=== PATIENT | female | born 1960 | race Caucasian/White ===

== ENCOUNTER 2017-04-04 08:25 | Emergency (ER) | payer OTHER ==
[~2017-04-04] VITALS: Ht 165.1 cm; Wt 79.0 kg
[~2017-04-04 08:25] MED LIST: BACT2OIN TOP; BACT800T5 PO; DEPA500T3 PO
[2017-04-04 08:26] VITALS: BP 202/87; PULSE 90; RESP 20; TEMP 97.9; O2SAT 98
--- NOTE | 2017-04-04 08:54 | PD ---
HPI Chief Complaint: Seizure Time Seen by Provider: 08:54 Travel History International Travel<30 days: No Contact w/Intl Traveler<30days: No Traveled to known affect area: No History of Present Illness HPI 56-year-old female presents the emergency department with question seizure this morning at 7:30 AM. Patient states she has been out of her Depakote since Tuesday., As well as taking less of that than normal due to inability to refill her prescription. Patient is currently having difficulty obtaining it secondary to insurance issues. Patient states she normally takes 2000 mg Depakote daily at bedtime. Patient states she woke up this morning after an apparent seizure, but denies any specific injury or illness symptoms at this time. Patient states she feels somewhat anxious now, like she would might have another seizure. She has no complaints of headache or pain. She has no known drug allergies. PFSH Past Medical History Cancer: No Diabetes: No Diminished Hearing: No Glaucoma: No Hepatitis: No Hiatal Hernia: No Hypertension: No Respiratory: No Seizures: Yes (EPILEPSY) Thyroid Disease: No Tetanus Vaccination: Unknown Influenza Vaccination: No ?: Not Menopausal: Yes Tubal Ligation: Yes Past Surgical History Gynecologic Surgery: Yes (RIGHT OVARY AND TUBE REMOVED; PARTIAL LEFT) Tonsillectomy: Yes Other Surgery: Yes Social History Alcohol Use: No Tobacco Use: Yes (1/2 PPD) Substance Use: Yes Allergies-Medications (Allergen,Severity, Reaction): Coded Allergies: No Known Allergies (Verified , 07/23/16) Reported Meds & Prescriptions Reported Meds & Active Scripts Active Depakote ER (Divalproex Sodium) 500 Mg Stephania 2,000 Mg PO DAILY Mupirocin 2% Oint (22 gm) (Mupirocin) 2 % Oin 1 Applic TOP TID 10 Days APPLY TO AFFECTED AREA(S) Bactrim DS (Sulfamethoxazole-Trimethoprim DS) 1 Tab Tab 1 Tab PO Q12 10 Days Reported Depakote ER 500 mg (Divalproex Sodium) 500 Mg Stephania 2,000 Mg PO HS Review of Systems Except as stated in HPI: all other systems reviewed are Neg General / Constitutional: No: Fever Eyes: No: Visual changes HENT: No: Headaches Cardiovascular: No: Chest Pain or Discomfort Respiratory: No: Shortness of Breath Gastrointestinal: No: Abdominal Pain Genitourinary: No: Dysuria Musculoskeletal: No: Pain Skin: No Rash Neurologic: Positive: Seizures, No: Weakness Psychiatric: No: Depression Endocrine: No: Polydipsia Hematologic/Lymphatic: No: Easy Bruising Physical Exam Narrative GENERAL: Patient appears in no acute distress. SKIN: Warm and dry. Normal color. Normal turgor. No signs of trauma. HEAD: Atraumatic. Normocephalic. Nontender. EYES: Pupils equal and round. No scleral icterus. No injection or drainage. ENT: No nasal bleeding or discharge. Mucous membranes pink and moist. No dental injury. No buccal membrane injury. Pharynx is clear. Airway is patent. NECK: Trachea midline. Supple and nontender. CARDIOVASCULAR: Regular rate and rhythm. RESPIRATORY: No accessory muscle use. Clear to auscultation. Breath sounds equal bilaterally. GASTROINTESTINAL: Abdomen soft, non-tender, nondistended. Hepatic and splenic margins not palpable. MUSCULOSKELETAL: Extremities without clubbing, cyanosis, or edema. No obvious deformities. NEUROLOGICAL: Awake and alert. No obvious cranial nerve deficits. Motor grossly within normal limits. Five out of 5 muscle strength in the arms and legs. Normal speech. PSYCHIATRIC: Appropriate mood and affect; insight and judgment normal. Data Data Last Documented VS Vital Signs Date Time Temp Pulse Resp B/P Pulse Ox O2 Delivery O2 Flow Rate FiO2 04/04/17 09:10 98 Room Air 04/04/17 08:41 18 04/04/17 08:26 97.9 90 202/87 Orders Complete Blood Count With Diff (04/04/17 08:54) Alcohol (Ethanol) (04/04/17 08:54) Valproic Acid (Depakene) (04/04/17 08:54) Drug Screen, Random Urine (04/04/17 08:54) Blood Glucose (04/04/17 08:54) Ecg Monitoring (04/04/17 08:54) Iv Access Insert/Monitor (04/04/17 08:54) Oximetry (04/04/17 08:54) Comprehensive Metabolic Panel (04/04/17 08:54) Urinalysis - C+S If Indicated (04/04/17 08:54) Valproic Acid (Depakene) (04/04/17 09:00) Divalproex (Depakobatsheva Price) (04/04/17 09:00) Lorazepam Inj (Ativan Inj) (04/04/17 09:00) Lorazepam Inj (Ativan Inj) (04/04/17 09:30) Labs Laboratory Tests Test 04/04/17 04/04/17 09:05 09:10 White Blood Count 7.9 TH/MM3 Red Blood Count 4.05 MIL/MM3 Hemoglobin 13.7 GM/DL Hematocrit 39.1 % Mean Corpuscular Volume 96.6 FL Mean Corpuscular Hemoglobin 33.8 PG Mean Corpuscular Hemoglobin 35.0 % Concent Red Cell Distribution Width 13.1 % Platelet Count 265 TH/MM3 Mean Platelet Volume 8.4 FL Neutrophils (%) (Auto) 59.9 % Lymphocytes (%) (Auto) 29.7 % Monocytes (%) (Auto) 8.5 % Eosinophils (%) (Auto) 1.3 % Basophils (%) (Auto) 0.6 % Neutrophils # (Auto) 4.8 TH/MM3 Lymphocytes # (Auto) 2.4 TH/MM3 Monocytes # (Auto) 0.7 TH/MM3 Eosinophils # (Auto) 0.1 TH/MM3 Basophils # (Auto) 0.0 TH/MM3 CBC Comment DIFF FINAL Differential Comment Sodium Level 141 MEQ/L Potassium Level 4.0 MEQ/L Chloride Level 107 MEQ/L Carbon Dioxide Level 28.2 MEQ/L Anion Gap 6 MEQ/L Blood Urea Nitrogen 15 MG/DL Creatinine 0.61 MG/DL Estimat Glomerular Filtration 102 ML/MIN Rate Random Glucose 79 MG/DL Calcium Level 8.9 MG/DL Total Bilirubin 0.3 MG/DL Aspartate Amino Transf 13 U/L (AST/SGOT) Alanine Aminotransferase 19 U/L (ALT/SGPT) Alkaline Phosphatase 53 U/L Total Protein 6.6 GM/DL Albumin 3.5 GM/DL Valproic Acid (Depakene) Level 21 MCG/ML Ethyl Alcohol Level LESS THAN 3 MG/DL Urine Color YELLOW Urine Turbidity CLEAR Urine pH 5.5 Urine Specific [place] 1.017 Urine Protein NEG mg/dL Urine Glucose (UA) NEG mg/dL Urine Ketones NEG mg/dL Urine Occult Blood NEG Urine Nitrite NEG Urine Bilirubin NEG Urine Urobilinogen 2.0 MG/DL Urine Leukocyte Esterase NEG Urine RBC 2 /hpf Urine WBC LESS THAN 1 /hpf Urine Squamous Epithelial <1 /hpf Cells Urine Calcium Oxalate Crystals RARE /hpf Urine Mucus FEW /lpf Microscopic Urinalysis Comment CULT NOT INDICATED Urine Opiates Screen NEG Urine Barbiturates Screen NEG Urine Amphetamines Screen NEG Urine Benzodiazepines Screen NEG Urine Cocaine Screen POS Urine Cannabinoids Screen NEG MDM Medical Decision Making Medical Screen Exam Complete: Yes Emergency Medical Condition: Yes Differential Diagnosis Seizure. Low Depakote level. Need for prescription. Narrative Course Patient is medically stable at time of exam. Labs ordered including CBC, CMP, Depakote level, and urinalysis including urine drug screen and serum EtOH level. Patient is given 1000 mg Depakote by mouth, as well as 0.5 mg lorazepam IV. Patient is given 1000 mL's normal saline bolus. CBC is unremarkable. CMP is unremarkable. Depakote level is 21 which is low. Urinalysis is unremarkable. EtOH level is less than 3. Urine drug screen is positive for cocaine otherwise negative. Patient is felt stable for discharge. Patient is given a prescription for Depakote 2000 mg daily at bedtime. Patient is to follow-up with her primary care physician or go to [facility] for primary care. Diagnosis Primary Impression: Seizure Additional Impression: Seizure disorder Referrals: [facility] Patient Instructions: General Instructions Additional Instructions: CBC is unremarkable. CMP is unremarkable. Depakote level is 21 which is low. Urinalysis is unremarkable. EtOH level is less than 3. Urine drug screen is Patient is felt stable for discharge. Patient is given a prescription for Depakote 2000 mg daily at bedtime. Patient is to follow-up with her primary care physician or go to [facility] for primary care. Med/Other Pt SpecificInfo: Prescription(s) given Scripts Divalproex ER (Depakote ER)500 Mg Taber2,000 Mg PO DAILY #120 TAB Ref 2 Prov:Sebas Hernandez MD 04/04/17 Disposition: DISCHARGE HOME Condition: Stable Jose Martin Okeefe Apr 04, 2017 08:54
[2017-04-04] MEDS ORDERED: LORazepam 2 MG/ML VIAL IM ONE (09:00)
[2017-04-04] MEDS ORDERED: VALPROIC ACID 250 MG CAP PO ONE (09:00)
[2017-04-04] MEDS ORDERED: DIVALPROEX DR 500 MG TABEC PO ONE (09:00)
[2017-04-04 09:10] VITALS: O2SAT 98
[2017-04-04 09:26] LABS: AUTOMATED NEUTROPHIL # 4.8 TH/MM3 (1.8-7.7); BASOPHIL % 0.6 % (0.0-2.0); EOSINOPHIL # 0.1 TH/MM3 (0-0.4); EOSINOPHIL % 1.3 % (0.0-4.0); HEMATOCRIT 39.1 % (35.0-46.0); HEMO FLAGS DIFF FINAL; LYMPH % 29.7 % (9.0-44.0); LYMPHOCYTE # 2.4 TH/MM3 (1.0-4.8); MEAN CELL VOLUME 96.6 FL (80.0-100.0); MEAN CORPUSCULAR HEMOGLOBIN 33.8 PG (27.0-34.0); MONO % 8.5 % (0.0-8.0); NEUT % 59.9 % (16.0-70.0); PLATELET COUNT 265 TH/MM3 (150-450); RED BLOOD COUNT 4.05 MIL/MM3 (4.00-5.30); RED CELL DISTRIBUTION WIDTH 13.1 % (11.6-17.2); WHITE BLOOD COUNT 7.9 TH/MM3 (4.0-11.0)
[2017-04-04 09:30] VITALS: BP 138/82; PULSE 89; RESP 20; O2SAT 98
[2017-04-04] MEDS ORDERED: LORazepam 2 MG/ML VIAL IV PUSH ONE (09:30)
[2017-04-04 09:40] LABS: BLOOD, URINE NEG (NEG); CALCIUM OXALATE CRYSTALS,URINE RARE /hpf; COMMENT (UR) CULT NOT INDICATED; CULTURE IF INDICATED CULT NOT INDICATED; GLUCOSE,URINE NEG (NEG); KETONE, URINE NEG (NEG); MUCUS URINE FEW /lpf (OCC); NITRITE,URINE NEG (NEG); PH, URINE 5.5 (5.0-8.5); SQUAMOUS EPITHELIAL CELL URINE <1 /hpf (0-5); URINE COLOR YELLOW (YELLW/STRAW)
[2017-04-04 09:41] LABS: ALT (GPT) 19 U/L (10-53); ANION GAP 6 MEQ/L (5-15); AST (GOT) 13 U/L (15-37); BICARBONATE 28.2 MEQ/L (21.0-32.0); BLOOD UREA NITROGEN 15 MG/DL (7-18); CHLORIDE 107 MEQ/L (98-107); GLOMERULAR FILTRATION RATE 102 ML/MIN (>89); SODIUM (NA) 141 MEQ/L (136-145)
[2017-04-04 09:44] LABS: ALKALINE PHOSPHATASE 53 U/L (45-117); TOTAL BILIRUBIN ADULT 0.3 MG/DL (0.2-1.0)
[2017-04-04 09:51] LABS: AMPHETAMINE, URINE NEG (NEG); BARBITURATES, URINE NEG (NEG); COCAINE, URINE POS (NEG)
[2017-04-04] MEDS ORDERED: DEPA500T3 PO (10:11)
[2017-04-04 10:25] VITALS: BP 145/86; PULSE 86; RESP 20; O2SAT 99
== END 2017-04-04 10:42 | disposition home or self-care (01) ==
LOC: NEPC 08:30
DX: G40.909 Epilepsy, unspecified, not intractable, without status epilepticus (principal); F17.200 Nicotine dependence, unspecified, uncomplicated; Z79.899 Other long term (current) drug therapy
CPT/HCPCS: 80053; 80164; 80307; 81001; 85025; 96374; 99284; J2060

== ENCOUNTER 2018-01-03 07:59 | Emergency (ER) | payer OTHER ==
[~2018-01-03] VITALS: Ht 165.1 cm; Wt 72.0 kg
[2018-01-03 08:04] VITALS: BP 185/91; PULSE 85; RESP 20; TEMP 98.4; O2SAT 100
[2018-01-03 08:14] VITALS: BP 170/101; PULSE 70; RESP 17; O2SAT 99
[2018-01-03] MEDS ORDERED: SODIUM CHLORIDE 0.9% FLUSH 10 ML FLUSH IV FLUSH PRN (08:45)
--- NOTE | 2018-01-03 08:48 | PD ---
HPI Chief Complaint: Dizziness Time Seen by Provider: 08:45 Travel History International Travel<30 days: No Contact w/Intl Traveler<30days: No Traveled to known affect area: No History of Present Illness HPI Patient is a 57-year-old female with no primary care physician history of seizures on Depakote presents emergency department for several complaints. Her chief complaint is about a weeks worth a history of abnormal stooling, she states it looked like she had "a paper bag" come out of her rectum the other day , she states she is also noticed some black flecks. She is concerned because her dog recently of parasites and wonders if she has parasites. She states she is having problems concentrating and her new job as a cashier clerk and problems staying awake. She is a cigarette smoker. She has never had a colonoscopy before. Denies any chest pain abdominal pain shortness of breath nausea vomiting diarrhea. PFSH Past Medical History Cancer: No Cardiovascular Problems: Yes (htn no meds) Diabetes: No Diminished Hearing: No Glaucoma: No Hepatitis: No Hiatal Hernia: No Hypertension: No Medical other: Yes (EPILEPSEY) Respiratory: No Immunizations Current: Yes Seizures: Yes (EPILEPSY) Thyroid Disease: No Tetanus Vaccination: > 5 Years Influenza Vaccination: No ?: Not Menopausal: Yes Tubal Ligation: Yes Past Surgical History Gynecologic Surgery: Yes (RIGHT OVARY AND TUBE REMOVED; PARTIAL LEFT) Tonsillectomy: Yes Other Surgery: Yes Social History Alcohol Use: No Tobacco Use: Yes (ppd) Substance Use: Yes (cocaine) Allergies-Medications (Allergen,Severity, Reaction): Coded Allergies: No Known Allergies (Verified Adverse Reaction, Unknown, 01/03/18) Reported Meds & Prescriptions Reported Meds & Active Scripts Active Depakote ER (Divalproex Sodium) 500 Mg Stephania 2,000 Mg PO DAILY Review of Systems Except as stated in HPI: all other systems reviewed are Neg Physical Exam Narrative GENERAL: Well-developed, well-nourished, no obvious distress. SKIN: Focused skin assessment warm/dry. HEAD: Atraumatic. Normocephalic. EYES: Pupils equal and round. No scleral icterus. No injection or drainage. ENT: No nasal bleeding or discharge. Mucous membranes pink and moist. NECK: Trachea midline. No JVD. CARDIOVASCULAR: Regular rate and rhythm. No murmur appreciated. RESPIRATORY: No accessory muscle use. Clear to auscultation. Breath sounds equal bilaterally. GASTROINTESTINAL: Abdomen soft, non-tender, nondistended. Hepatic and splenic margins not palpable. RECTAL: Exam performed with female nurse print shop manager present all times, no fissures no tears no hemorrhoids no masses, brown normal-appearing stool with Hemoccult negative testing MUSCULOSKELETAL: No obvious deformities. No clubbing. No cyanosis. No edema. NEUROLOGICAL: Awake and alert. No obvious cranial nerve deficits. Motor grossly within normal limits. Normal speech. PSYCHIATRIC: Elevated affect, normal mood. Insight and judgment normal. Somewhat hyperverbal. Data Data Last Documented VS Vital Signs Date Time Temp Pulse Resp B/P (MAP) Pulse Ox O2 Delivery O2 Flow Rate FiO2 01/03/18 11:15 01/03/18 08:14 70 17 99 Room Air 01/03/18 08:04 98.4 Orders Orders Electrocardiogram (01/03/18 08:45) Complete Blood Count With Diff (01/03/18 08:45) Comprehensive Metabolic Panel (01/03/18 08:45) Thyroid Stimulating Hormone (01/03/18 08:45) Ecg Monitoring (01/03/18 08:45) Iv Access Insert/Monitor (01/03/18 08:45) Oximetry (01/03/18 08:45) Sodium Chloride 0.9% Flush (Ns Flush) (01/03/18 08:45) Valproic Acid (Depakene) (01/03/18 08:46) Ed Discharge Order (01/03/18 11:04) Labs Laboratory Tests Test 01/03/18 08:45 01/03/18 09:04 White Blood Count 4.7 TH/MM3 Red Blood Count 3.86 MIL/MM3 Hemoglobin 12.6 GM/DL Hematocrit 36.9 % Mean Corpuscular Volume 95.6 FL Mean Corpuscular Hemoglobin 32.5 PG Mean Corpuscular Hemoglobin Concent 34.1 % Red Cell Distribution Width 13.0 % Platelet Count 260 TH/MM3 Mean Platelet Volume 9.0 FL Neutrophils (%) (Auto) 47.0 % Lymphocytes (%) (Auto) 43.5 % Monocytes (%) (Auto) 6.6 % Eosinophils (%) (Auto) 2.2 % Basophils (%) (Auto) 0.7 % Neutrophils # (Auto) 2.2 TH/MM3 Lymphocytes # (Auto) 2.0 TH/MM3 Monocytes # (Auto) 0.3 TH/MM3 Eosinophils # (Auto) 0.1 TH/MM3 Basophils # (Auto) 0.0 TH/MM3 CBC Comment DIFF FINAL Differential Comment Blood Urea Nitrogen 7 MG/DL Creatinine 0.69 MG/DL Random Glucose 82 MG/DL Total Protein 7.0 GM/DL Albumin 3.3 GM/DL Calcium Level 8.7 MG/DL Alkaline Phosphatase 62 U/L Aspartate Amino Transf (AST/SGOT) 24 U/L Alanine Aminotransferase (ALT/SGPT) 22 U/L Total Bilirubin 0.3 MG/DL Sodium Level 142 MEQ/L Potassium Level 4.1 MEQ/L Chloride Level 106 MEQ/L Carbon Dioxide Level 28.0 MEQ/L Anion Gap 8 MEQ/L Estimat Glomerular Filtration Rate 88 ML/MIN Thyroid Stimulating Hormone 3rd Gen 0.520 uIU/ML Valproic Acid (Depakene) Level 97 MCG/ML MDM Medical Decision Making Medical Screen Exam Complete: Yes Emergency Medical Condition: Yes Differential Diagnosis Depakote toxicity, GI bleeding, parasitic infection is possible but unlikely, poor social circumstance, fatigue, hypothyroidism Narrative Course Patient room to the emergency department, quite an odd complaint that she has passed some discolored paper from her rectum. Perform rectal exam and I am unimpressed. Her labs are reassuring. At this time there is no indication for further emergent workup. She is stable for discharge follow-up with the [facility] or primary care physician. Diagnosis Primary Impression: Stool color abnormal Referrals: [facility] Disposition: 01 DISCHARGE HOME Condition: Stable Adalberto Owusu MD Jan 03, 2018 08:48
[2018-01-03 09:14] LABS: AUTOMATED NEUTROPHIL # 2.2 TH/MM3 (1.8-7.7); BASOPHIL % 0.7 % (0.0-2.0); EOSINOPHIL # 0.1 TH/MM3 (0-0.4); EOSINOPHIL % 2.2 % (0.0-4.0); HEMATOCRIT 36.9 % (35.0-46.0); HEMOGLOBIN 12.6 GM/DL (11.6-15.3); LYMPH % 43.5 % (9.0-44.0); MEAN CELL VOLUME 95.6 FL (80.0-100.0); MEAN CORPUSCULAR HEMOGLOBIN 32.5 PG (27.0-34.0); MEAN CORPUSCULAR HGB CONC 34.1 % (32.0-36.0); MONO % 6.6 % (0.0-8.0); MONOCYTE # 0.3 TH/MM3 (0-0.9); PLATELET COUNT 260 TH/MM3 (150-450); RED BLOOD COUNT 3.86 MIL/MM3 (4.00-5.30); WHITE BLOOD COUNT 4.7 TH/MM3 (4.0-11.0)
[2018-01-03 09:31] LABS: ALT (GPT) 22 U/L (10-53)
[2018-01-03 09:34] LABS: ALBUMIN 3.3 GM/DL (3.4-5.0); AST (GOT) 24 U/L (15-37); BLOOD UREA NITROGEN 7 MG/DL (7-18); CALCIUM 8.7 MG/DL (8.5-10.1); CHLORIDE 106 MEQ/L (98-107); CREATININE 0.69 MG/DL (0.50-1.00); GLOMERULAR FILTRATION RATE 88 ML/MIN (>89); GLUCOSE,RANDOM 82 MG/DL (74-106); SODIUM (NA) 142 MEQ/L (136-145)
[2018-01-03 09:40] LABS: ALKALINE PHOSPHATASE 62 U/L (45-117); TOTAL BILIRUBIN ADULT 0.3 MG/DL (0.2-1.0)
--- NOTE | 2018-01-03 15:36 | EKG ---
Date Performed: 01/03/2018 Time Performed: 09:02:11 PTAGE: 57 years EKG: Sinus rhythm NORMAL ECG INTERPRETATION BASED ON A DEFAULT AGE OF 40 YEARS Since the previous tracing, no signific ant change noted NO PREVIOUS TRACING DOCTOR: Danish Fletcher Interpretating Date/Time 01/03/2018 15:34:10
== END 2018-01-03 11:28 | disposition home or self-care (01) ==
LOC: NEPC 07:59
DX: R19.5 Other fecal abnormalities (principal); F14.10 Cocaine abuse, uncomplicated; I10 Essential (primary) hypertension; G40.909 Epilepsy, unspecified, not intractable, without status epilepticus; F17.200 Nicotine dependence, unspecified, uncomplicated
CPT/HCPCS: 80053; 80164; 84443; 85025; 93005; 99284

== ENCOUNTER 2018-02-06 11:07 | Observation (INO) | payer OTHER ==
[~2018-02-06] VITALS: Ht 165.1 cm; Wt 68.0 kg
[~2018-02-06 11:07] MED LIST changes: -BACT2OIN TOP; -BACT800T5 PO
[2018-02-06 11:15] VITALS: BP 133/91; PULSE 88; RESP 20; TEMP 98.3; O2SAT 100
--- NOTE | 2018-02-06 11:27 | PD ---
HPI Chief Complaint: Seizure Time Seen by Provider: 11:27 Travel History International Travel<30 days: No Contact w/Intl Traveler<30days: No Traveled to known affect area: No History of Present Illness HPI 57-year-old female came to the emergency room with history of a seizure episode today at around 10 AM. Patient says that she was in a religious but had the seizure which was unwitnessed. Patient when she woke up was laying on a bench with her drink toppled over and her head was hurting. She was feeling very groggy and she recalls this feeling every time she has a seizure. Last seizure was 1 year ago however. Patient is on Depakote and missed couple doses last 2 or 3 days ago because she forgot. She takes 2 g before going to bed. She has had the diagnosis of epilepsy since she was 16 years old. Patient denies of any incontinence, lip bite her tongue bite. Currently she feels back to her normal self. Vital signs are stable. She usually would not have come if it was not for the prolonged time of the grogginess. This was new for her today. Currently she is having some headache and neck pain. Neck pain is worse when she tries to turn her head to look on her left side. PFSH Past Medical History Narrative Medical List of her past medical, surgical, social and family history reviewed from the nursing note. Cancer: No Cardiovascular Problems: Yes (htn no meds) Diabetes: No Diminished Hearing: No Glaucoma: No Hepatitis: No Hiatal Hernia: No Hypertension: No Respiratory: No Immunizations Current: Yes Seizures: Yes (EPILEPSY) Thyroid Disease: No ?: Not Menopausal: Yes Tubal Ligation: Yes Past Surgical History Gynecologic Surgery: Yes (RIGHT OVARY AND TUBE REMOVED; PARTIAL LEFT) Tonsillectomy: Yes Other Surgery: Yes Social History Alcohol Use: No Tobacco Use: Yes (ppd) Substance Use: Yes (cocaine) Allergies-Medications (Allergen,Severity, Reaction): Coded Allergies: No Known Allergies (Verified Adverse Reaction, Unknown, 02/06/18) Comments No known drug allergies. Reported Meds & Prescriptions Reported Meds & Active Scripts Active Narrative Medication List of her home medications reviewed from the nursing note Review of Systems Except as stated in HPI: all other systems reviewed are Neg Neurologic: Positive: Seizures Physical Exam Narrative GENERAL: Awake, alert, no obvious distress SKIN: Focused skin assessment warm/dry. HEAD: Atraumatic. Normocephalic. EYES: Pupils equal and round. No scleral icterus. No injection or drainage. ENT: No nasal bleeding or discharge. Mucous membranes pink and moist. NECK: Trachea midline. No JVD. Pain on lateral flexion left side more than right CARDIOVASCULAR: Regular rate and rhythm. No murmur appreciated. RESPIRATORY: No accessory muscle use. Clear to auscultation. Breath sounds equal bilaterally. GASTROINTESTINAL: Abdomen soft, non-tender, nondistended. Hepatic and splenic margins not palpable. MUSCULOSKELETAL: No obvious deformities. No clubbing. No cyanosis. No edema. NEUROLOGICAL: Awake and alert. No obvious cranial nerve deficits. Motor grossly within normal limits. Normal speech. PSYCHIATRIC: Appropriate mood and affect; insight and judgment normal. Data Data Last Documented VS Orders Orders Complete Blood Count With Diff (02/06/18 11:33) Basic Metabolic Panel (Bmp) (02/06/18 11:33) Valproic Acid (Depakene) (02/06/18 11:33) Ct Brain W/O Iv Contrast(Rout) (02/06/18 ) Blood Glucose (02/06/18 11:33) Ecg Monitoring (02/06/18 11:33) Iv Access Insert/Monitor (02/06/18 11:33) Oximetry (02/06/18 11:33) Sodium Chloride 0.9% Flush (Ns Flush) (02/06/18 11:45) Ct Cerv Spine W/O Contrast (02/06/18 ) Acetaminophen (Tylenol) (02/06/18 11:45) ^ Seizure Precautions (02/06/18 11:35) Sodium Chlor 0.9% 1000 Ml Inj (Ns 1000 M (02/06/18 13:30) Admit Order (Ed Use Only) (02/06/18 14:08) Labs Laboratory Tests Test 02/06/18 11:45 White Blood Count 7.4 TH/MM3 Red Blood Count 4.25 MIL/MM3 Hemoglobin 13.5 GM/DL Hematocrit 39.8 % Mean Corpuscular Volume 93.7 FL Mean Corpuscular Hemoglobin 31.8 PG Mean Corpuscular Hemoglobin Concent 33.9 % Red Cell Distribution Width 13.1 % Platelet Count 216 TH/MM3 Mean Platelet Volume 9.4 FL Neutrophils (%) (Auto) 60.3 % Lymphocytes (%) (Auto) 28.5 % Monocytes (%) (Auto) 9.7 % Eosinophils (%) (Auto) 0.6 % Basophils (%) (Auto) 0.9 % Neutrophils # (Auto) 4.4 TH/MM3 Lymphocytes # (Auto) 2.1 TH/MM3 Monocytes # (Auto) 0.7 TH/MM3 Eosinophils # (Auto) 0.0 TH/MM3 Basophils # (Auto) 0.1 TH/MM3 CBC Comment DIFF FINAL Differential Comment Blood Urea Nitrogen 11 MG/DL Creatinine 0.76 MG/DL Random Glucose 80 MG/DL Calcium Level 8.6 MG/DL Sodium Level 142 MEQ/L Potassium Level 4.0 MEQ/L Chloride Level 105 MEQ/L Carbon Dioxide Level 31.9 MEQ/L Anion Gap 5 MEQ/L Estimat Glomerular Filtration Rate 79 ML/MIN Total Creatine Kinase 62 U/L Valproic Acid (Depakene) Level 110 MCG/ML MDM Medical Decision Making Medical Screen Exam Complete: Yes Emergency Medical Condition: Yes Medical Record Reviewed: Yes Differential Diagnosis Breakthrough seizure, withdrawal seizure Narrative Course 11:58 AM awaiting for the blood test result. Awaiting for the Depakote level. I have ordered CAT scan of her head and C-spine. If test is also within normal limit patient will be discharged home. Have given her Tylenol for headache. 1:14 PM blood test results are back and Depakote level is critically high. This is concerning given the fact that patient has already missed few doses and is still continues to be high. I would like her to be admitted at least for observation so that this level can be watched. Obviously her dose needs to be withheld for the time being. Awaiting for the hospitalist callback. Procedures EKG Prior to Arrival: No Diagnosis Primary Impression: Seizure disorder Additional Impression: Depakote toxicity Admitting Information Admitting Physician Requests: Observation Scripts Divalproex ER (Depakote ER) 500 Mg Stephania 1000 MG PO DAILY for Control Seizures, #30 TAB 0 Refills Prov: Cassius Bruner MD 02/08/18 Levetiracetam (Keppra) 500 Mg Tab 500 MG PO Q12HR for Seizure Control, #60 TAB Prov: Cassius Bruner MD 02/08/18 Brian Pascal MD Feb 06, 2018 11:27
[2018-02-06 11:44] VITALS: BP 190/88; PULSE 78; RESP 16; O2SAT 98
[2018-02-06] MEDS ORDERED: SODIUM CHLORIDE 0.9% FLUSH 10 ML FLUSH IVF PRN (11:45)
[2018-02-06] MEDS ORDERED: ACETAMINOPHEN 325 MG TAB PO ONE (11:45)
[2018-02-06 12:30] VITALS: BP 173/80; PULSE 72; RESP 14; O2SAT 99
--- NOTE | 2018-02-06 12:36 | RADRPT ---
EXAM DATE/TIME: 02/06/2018 12:15 [facility] COMPARISON: No previous studies available for comparison. INDICATIONS : Possible seizure today. RADIATION DOSE: 56.35 CTDIvol (mGy) MEDICAL HISTORY : Seizures. SURGICAL HISTORY : Tubal ligation. ENCOUNTER: Initial ACUITY: 1 day PAIN SCALE: 10/10 LOCATION: Bilateral head TECHNIQUE: Multiple contiguous axial images were obtained of the head. Using automated exposure control and adj ustment of the mA and/or kV according to patient size, radiation dose was kept as low as reasonably a chievable to obtain optimal diagnostic quality images. DICOM format image data is available electro nically for review and comparison. FINDINGS: CEREBRUM: The ventricles are normal for age. No evidence of midline shift, mass lesion, hemorrhage or acute in farction. No extra-axial fluid collections are seen. POSTERIOR FOSSA: The cerebellum and brainstem are intact. The 4th ventricle is midline. The cerebellopontine angle i s unremarkable. EXTRACRANIAL: The visualized portion of the orbits is intact. SKULL: The calvaria is intact. No evidence of skull fracture. CONCLUSION: Negative noncontrast CT Azeem Cota MD on February 06, 2018 at 12:33 Board Certified Radiologist. This report was verified electronically.
--- NOTE | 2018-02-06 12:42 | RADRPT ---
EXAM DATE/TIME: 02/06/2018 12:15 [facility] COMPARISON: No previous studies available for comparison. INDICATIONS : Possible seizure today. RADIATION DOSE: 17.08 CTDIvol (mGy) MEDICAL HISTORY : Seizures. SURGICAL HISTORY : None. ENCOUNTER: Initial ACUITY: 1 day PAIN SCALE: 6/10 LOCATION: Bilateral neck TECHNIQUE: Volumetric scanning of the cervical spine was performed. Multiplanar reconstructions in the sagittal, coronal and oblique axial planes were performed. Using automated exposure control and adjustment o f the mA and/or kV according to patient size, radiation dose was kept as low as reasonably achievable to obtain optimal diagnostic quality images. DICOM format image data is available electronically f or review and comparison. FINDINGS: The sagittal reconstructions demonstrate normal alignment and normal prevertebral soft tissues. The d ens is intact and there is a normal atlantoaxial relationship. Degenerative changes present at the C5 -6 and C6-7 levels with disc space narrowing and hypertrophic change. The axial images demonstrate that the vertebral bodies and posterior elements are intact. The soft ti ssues are within normal limits. There is no evidence of acute fracture or malalignment. There are dis c osteophyte complexes at the C5-6 and C6-7 levels. CONCLUSION: Negative trauma CT. Azeem Cota MD on February 06, 2018 at 12:37 Board Certified Radiologist. This report was verified electronically.
[2018-02-06 12:46] LABS: AUTOMATED NEUTROPHIL # 4.4 TH/MM3 (1.8-7.7); BASOPHIL # 0.1 TH/MM3 (0-0.2); BASOPHIL % 0.9 % (0.0-2.0); EOSINOPHIL % 0.6 % (0.0-4.0); HEMATOCRIT 39.8 % (35.0-46.0); HEMOGLOBIN 13.5 GM/DL (11.6-15.3); LYMPH % 28.5 % (9.0-44.0); LYMPHOCYTE # 2.1 TH/MM3 (1.0-4.8); MEAN CELL VOLUME 93.7 FL (80.0-100.0); MEAN CORPUSCULAR HEMOGLOBIN 31.8 PG (27.0-34.0); MEAN CORPUSCULAR HGB CONC 33.9 % (32.0-36.0); MEAN PLATELET VOLUME 9.4 FL (7.0-11.0); MONO % 9.7 % (0.0-8.0); MONOCYTE # 0.7 TH/MM3 (0-0.9); NEUT % 60.3 % (16.0-70.0); PLATELET COUNT 216 TH/MM3 (150-450); RED BLOOD COUNT 4.25 MIL/MM3 (4.00-5.30); RED CELL DISTRIBUTION WIDTH 13.1 % (11.6-17.2); WHITE BLOOD COUNT 7.4 TH/MM3 (4.0-11.0)
[2018-02-06 13:04] LABS: BICARBONATE 31.9 MEQ/L (21.0-32.0); CALCIUM 8.6 MG/DL (8.5-10.1); CREATININE 0.76 MG/DL (0.50-1.00)
[2018-02-06] MEDS ORDERED: SODIUM CHLOR 0.9% 1000 ML INJ 1,000 ML IV ONE (13:30)
[2018-02-06 13:33] VITALS: BP 143/71; PULSE 70; RESP 16; O2SAT 99
[2018-02-06] MEDS ORDERED: SODIUM CHLORIDE 0.9% FLUSH 10 ML FLUSH IV FLUSH PRN (14:15)
[2018-02-06] MEDS ORDERED: SENNOSIDES 8.6 MG TAB PO PRN (14:15)
[2018-02-06] MEDS ORDERED: ACETAMINOPHEN 325 MG TAB PO PRN ×2 (14:15)
[2018-02-06] MEDS ORDERED: cloNIDine HCL 0.1 MG TAB PO PRN (14:15)
[2018-02-06] MEDS ORDERED: NALOXONE HCL 0.4 MG/ML AMP IV PUSH PRN (14:15)
[2018-02-06] MEDS: levETIRAcetam 500 MG TAB PO SCH ×2 (15:38→21:52)
[2018-02-06] MEDS: SODIUM CHLOR 0.9% 1000 ML INJ 1,000 ML IV SCH ×2 (15:38→18:35)
[2018-02-06 15:53] LABS: AMORPHOUS SEDIMENT, URINE RARE; BILIRUBIN, URINE NEG (NEG); BLOOD, URINE NEG (NEG); GLUCOSE,URINE NEG (NEG); KETONE, URINE NEG (NEG); NITRITE,URINE NEG (NEG); PH, URINE 7.5 (5.0-8.5); SQUAMOUS EPITHELIAL CELL URINE 2 /hpf (0-5); URINE COLOR YELLOW (YELLW/STRAW); URINE LEUKOCYTE ESTERASE NEG (NEG)
[2018-02-06] MEDS ORDERED: LORazepam 2 MG/ML VIAL IV PUSH ONE (16:00)
--- NOTE | 2018-02-06 16:05 | HHI.HP ---
[facility] [place] No Primary Care Physician Admission Diagnosis Seizure, elevated Depakote Diagnoses: Chief Complaint: Seizure Travel History International Travel<30 Days: No Contact w/Intl Traveler <30 Da: No Traveled to Known Affected Are: No History of Present Illness The patient is a 57-year-old female with a past medical history of epilepsy on Depakote who is presenting to the hospital with concerns of a new seizure. Patient says she walked to her judaism and sat on the bench there. She says eventually she came to, was dizzy and found that her drink was upside down. She said she was also slumped on the bench. She was also forgetful and confused and she says those are symptoms she normally has following a seizure. She has had a lady walked by the bandage and asked her how she was and the patient was unable to communicate secondary to her state. She said she continued to feel foggy and got scared and decided to come to the hospital. The patient says she last had an episode about a year ago. She says her last real grand mal seizure was about 6 years ago. She says she has been on Depakote for 20 years and her dose has not been changed. She says she has been forgetting to take a dose on some evenings. The patient says her neurologist is Dr. Newman. She has been having some insurance problems with follow-up. The patient states she has been having some changes in her stool pattern. She endorses constipation. She says she came to the hospital not too long ago for concerns of a parasitic infection. She says she was not actually diagnosed with a parasitic infection. She says she has not had a colonoscopy. Review of Systems Except as stated in HPI: all other systems reviewed are Neg Past Family Social History Past Medical History Epilepsy Depression/anxiety Past Surgical History Tubal ligation Knee surgery 2 Tonsillectomy Allergies: Coded Allergies: No Known Allergies (Verified Adverse Reaction, Unknown, 02/06/18) Active Ordered Medications Current Medications Medications (Trade) Dose Ordered Sig/Shazia Route Start Time Stop Time Status Last Admin (Keppra) 500 mg Q12HR PO 02/06/18 14:15 02/06/18 15:38 Sodium Chloride 1,000 ml @ 100 mls/hr Q10H IV 02/06/18 14:08 02/07/18 10:07 02/06/18 15:38 (NS Flush) 2 ml UNSCH PRN IV FLUSH 02/06/18 14:15 (NS Flush) 2 ml BID IV FLUSH 02/06/18 21:00 (Tylenol) 650 mg Q4H PRN PO 02/06/18 14:15 (Tylenol) 650 mg Q6H PRN PO 02/06/18 14:15 (Narcan Inj) 0.4 mg UNSCH PRN IV PUSH 02/06/18 14:15 (Senokot) 17.2 mg Q12H PRN PO 02/06/18 14:15 (Catapres) 0.1 mg Q6H PRN PO 02/06/18 14:15 Family History CVA Seizures Diabetes Colon cancer Social History The patient smokes up to a pack per day. She has rare social alcohol intake. She denies illicit substance use. Physical Exam Vital Signs Vital Signs Date Time Temp Pulse Resp B/P (MAP) Pulse Ox O2 Delivery O2 Flow Rate FiO2 02/06/18 13:33 70 16 143/71 (95) 99 Room Air 02/06/18 12:30 72 14 173/80 (111) 99 Room Air 02/06/18 11:44 78 16 190/88 (122) 98 Room Air 02/06/18 11:15 98.3 88 20 133/91 (105) 100 Physical Exam GENERAL: This is a well-nourished, well-developed patient, in no apparent distress. SKIN: No rashes, ecchymoses or lesions. Cool and dry. HEAD: Atraumatic. Normocephalic. No temporal or scalp tenderness. EYES: Pupils equal round and reactive. Extraocular motions intact. No scleral icterus. No injection or drainage. ENT: Nose without bleeding, purulent drainage or septal hematoma. Throat without erythema, tonsillar hypertrophy or exudate. Uvula midline. Airway patent. NECK: Trachea midline. No JVD or lymphadenopathy. Supple, nontender, no meningeal signs. CARDIOVASCULAR: Regular rate and rhythm without murmurs, gallops, or rubs. RESPIRATORY: Clear to auscultation. Breath sounds equal bilaterally. No wheezes , rales, or rhonchi. GASTROINTESTINAL: Abdomen soft, non-tender, nondistended. No hepato-splenomegaly , or palpable masses. No guarding. MUSCULOSKELETAL: Extremities without clubbing, cyanosis, or edema. No joint tenderness, effusion, or edema noted. NEUROLOGICAL: Awake and alert. Cranial nerves II through XII intact. Motor and sensory grossly within normal limits. Five out of 5 muscle strength in all muscle groups. Normal speech. PSYCH: Mood and affect appropriate. Laboratory Laboratory Tests Test 02/06/18 11:45 02/06/18 15:30 White Blood Count 7.4 Red Blood Count 4.25 Hemoglobin 13.5 Hematocrit 39.8 Mean Corpuscular Volume 93.7 Mean Corpuscular Hemoglobin 31.8 Mean Corpuscular Hemoglobin Concent 33.9 Red Cell Distribution Width 13.1 Platelet Count 216 Mean Platelet Volume 9.4 Neutrophils (%) (Auto) 60.3 Lymphocytes (%) (Auto) 28.5 Monocytes (%) (Auto) 9.7 Eosinophils (%) (Auto) 0.6 Basophils (%) (Auto) 0.9 Neutrophils # (Auto) 4.4 Lymphocytes # (Auto) 2.1 Monocytes # (Auto) 0.7 Eosinophils # (Auto) 0.0 Basophils # (Auto) 0.1 CBC Comment DIFF FINAL Differential Comment Blood Urea Nitrogen 11 Creatinine 0.76 Random Glucose 80 Calcium Level 8.6 Sodium Level 142 Potassium Level 4.0 Chloride Level 105 Carbon Dioxide Level 31.9 Anion Gap 5 Estimat Glomerular Filtration Rate 79 Valproic Acid (Depakene) Level 110 Result Diagram: 02/06/18 1145 02/06/18 1145 Imaging Last Impressions Head CT 02/06/18 0000 Signed Impressions: Service Date/Time: Tuesday, February 06, 2018 12:15 - CONCLUSION: Negative noncontrast CT Azeem Cota MD Cervical Spine CT 02/06/18 0000 Signed Impressions: Service Date/Time: Tuesday, February 06, 2018 12:15 - CONCLUSION: Negative trauma CT. MD Chris Obandoi VTE Risk Assessment Caprini VTE Risk Assessment: Mod/High Risk (score >= 2) Caprini Risk Assessment Model Point Value = 1 Point Value = 2 Point Value = 3 Point Value = 5 Age 41-60 Minor surgery BMI > 25 kg/m2 Swollen legs Varicose veins or History of unexplained or recurrent spontaneous Oral contraceptives or hormone replacement Sepsis (< 1 month) Serious lung disease, including pneumonia (< 1 month) Abnormal pulmonary function Acute myocardial infarction Congestive heart failure (< 1 month) History of inflammatory bowel disease Medical patient at bed rest Age 61-74 Arthroscopic surgery Major open surgery (> 45 min) Laparoscopic surgery (> 45 min) Malignancy Confined to bed (> 72 hours) Immobilizing plaster cast Central venous access Age >= 75 History of VTE Family history of VTE Factor V Leiden Prothrombin [id number] Lupus anticoagulant Anticardiolipin antibodies Elevated serum homocysteine Heparin-induced thrombocytopenia Other congenital or acquired thrombophilia Stroke (< 1 month) Elective arthroplasty Hip, pelvis, or leg fracture Acute spinal cord injury (< 1 month) Prophylaxis Regimen Total Risk Factor Score Risk Level Prophylaxis Regimen 0-1 Low Early ambulation 2 Moderate Order ONE of the following: *Sequential Compression Device (SCD) *Heparin 5000 units SQ BID 3-4 Higher Order ONE of the following medications: *Heparin 5000 units SQ TID *Enoxaparin/Lovenox 40 mg SQ daily (WT < 150 kg, CrCl > 30 mL/min) *Enoxaparin/Lovenox 30 mg SQ daily (WT < 150 kg, CrCl > 10-29 mL/min) *Enoxaparin/Lovenox 30 mg SQ BID (WT < 150 kg, CrCl > 30 mL/min) AND/OR *Sequential Compression Device (SCD) 5 or more Highest Order ONE of the following medications: *Heparin 5000 units SQ TID (Preferred with Epidurals) *Enoxaparin/Lovenox 40 mg SQ daily (WT < 150 kg, CrCl > 30 mL/min) *Enoxaparin/Lovenox 30 mg SQ daily (WT < 150 kg, CrCl > 10-29 mL/min) *Enoxaparin/Lovenox 30 mg SQ BID (WT < 150 kg, CrCl > 30 mL/min) AND *Sequential Compression Device (SCD) Assessment and Plan Assessment and Plan Epilepsy The pt had an episode on the day of admission where she was post-ictal afterwards. She is currently at baseline. Her Depakote level was therapeutic. CT head unremarkable. Discussed with neurology. - hold Depakote and follow level in AM. Will likely need to be decreased upon discharge. Has been on 2000 mg HS for many years. - start Keppra 500 mg BID. - check UA, B12 and TSH. - neuro checks, seizure precautions. - MRI and EEG pending. - follow glucose level, was 80 on admission. Constipation The pt endorses changes in bowel habits. Has not had a colonoscopy before. - bowel regimen. - outpt colonoscopy recommended. Nicotine abuse The pt smokes up to a pack daily. - cessation instruction. Anxiety The pt endorses depression, anxiety and claustrophobia. - Ativan prior to MRI. - outpt follow-up. PPx: SCDs Code Status Full Discussed Condition With Pt, Dr. Pascal, Dr. Goss, nurse Azeem Dupree DO Feb 06, 2018 16:05
--- NOTE | 2018-02-06 17:56 | RADRPT ---
EXAM DATE/TIME: 02/06/2018 17:13 [place] COMPARISON: CT BRAIN W/O CONTRAST, February 06, 2018, 12:15. INDICATIONS : Epilepsy. Seizure today. MEDICAL HISTORY : Hypertension. Seizures. SURGICAL HISTORY : Tonsillectomy. Knee sx, Carpal tunnel sx, Ovary removed. ENCOUNTER: Initial ACUITY: 1 day PAIN SCORE: 1/10 LOCATION: Bilateral cranial TECHNIQUE: Multiplanar, multisequence MRI of the brain was performed without contrast. FINDINGS: CEREBRUM: The ventricles are normal for age. No evidence of midline shift, mass lesion, hemorrhage or acute in farction. No extraaxial fluid collections are seen. The pituitary gland and suprasellar cistern are normal in configuration. WHITE MATTER: No significant signal abnormalities are seen in the white matter. POSTERIOR FOSSA: The cerebellum and brainstem are intact. The 4th ventricle is midline. The cerebellopontine angle is unremarkable. The cerebellar tonsils are normal in position. DIFFUSION IMAGING: No focal areas of restricted diffusion are seen. No evidence of acute infarction. EXTRACRANIAL: The visualized portions of the orbits and paranasal sinuses are unremarkable. CONCLUSION: Negative noncontrast MRI of the brain. Isaiah Zaldivar MD on February 06, 2018 at 17:52 Board Certified Radiologist. This report was verified electronically.
[2018-02-06 18:00] VITALS: BP 147/77; PULSE 73; RESP 19; TEMP 97.8; O2SAT 99
[2018-02-06] MEDS: SODIUM CHLORIDE 0.9% FLUSH 10 ML FLUSH IV FLUSH SCH (21:00)
[2018-02-06] MEDS: DOCUSATE SODIUM 50 MG/SENNA 8.6 MG TAB PO SCH (21:52)
[2018-02-07] VITALS (7 sets, daily range): BP systolic 125–134; BP diastolic 62–79; PULSE 63–70; RESP 16–18; TEMP 97–98.8; O2SAT 97–99
[2018-02-07] MEDS: SODIUM CHLORIDE 0.9% FLUSH 10 ML FLUSH IV FLUSH SCH ×2 (07:52→21:23)
[2018-02-07] MEDS: DOCUSATE SODIUM 50 MG/SENNA 8.6 MG TAB PO SCH ×2 (07:52→21:22)
[2018-02-07] MEDS: levETIRAcetam 500 MG TAB PO SCH ×2 (07:52→21:22)
[2018-02-07 07:54] LABS: AUTOMATED NEUTROPHIL # 4.2 TH/MM3 (1.8-7.7); BASOPHIL # 0.1 TH/MM3 (0-0.2); BASOPHIL % 0.8 % (0.0-2.0); EOSINOPHIL # 0.1 TH/MM3 (0-0.4); EOSINOPHIL % 1.2 % (0.0-4.0); HEMATOCRIT 35.4 % (35.0-46.0); LYMPH % 35.1 % (9.0-44.0); LYMPHOCYTE # 2.8 TH/MM3 (1.0-4.8); MEAN CELL VOLUME 94.9 FL (80.0-100.0); MEAN CORPUSCULAR HEMOGLOBIN 32.2 PG (27.0-34.0); MEAN CORPUSCULAR HGB CONC 33.9 % (32.0-36.0); MEAN PLATELET VOLUME 9.2 FL (7.0-11.0); MONO % 9.8 % (0.0-8.0); MONOCYTE # 0.8 TH/MM3 (0-0.9); NEUT % 53.1 % (16.0-70.0); PLATELET COUNT 175 TH/MM3 (150-450); RED BLOOD COUNT 3.73 MIL/MM3 (4.00-5.30); WHITE BLOOD COUNT 7.9 TH/MM3 (4.0-11.0)
[2018-02-07 08:10] LABS: ALBUMIN 2.9 GM/DL (3.4-5.0); AST (GOT) 7 U/L (15-37); BICARBONATE 29.9 MEQ/L (21.0-32.0); BLOOD UREA NITROGEN 8 MG/DL (7-18); CALCIUM 8.5 MG/DL (8.5-10.1); CHLORIDE 107 MEQ/L (98-107); GLOMERULAR FILTRATION RATE 104 ML/MIN (>89); GLUCOSE,RANDOM 88 MG/DL (74-106); SODIUM (NA) 143 MEQ/L (136-145)
[2018-02-07 08:12] LABS: ALT (GPT) 12 U/L (10-53)
[2018-02-07 08:13] LABS: ALKALINE PHOSPHATASE 57 U/L (45-117); TOTAL BILIRUBIN ADULT 0.2 MG/DL (0.2-1.0); TOTAL PROTEIN 5.9 GM/DL (6.4-8.2)
[2018-02-07] MEDS ORDERED: INFLUENZA VIRUS VACCINE (QUADRIVALENT) 0.5 ML SYR IM ONE (10:00)
--- NOTE | 2018-02-07 18:11 | HHI.PR ---
Subjective Remarks Patient reports lethargy today. No further seizure activity witnessed. Her last previous seizure was 4-6 years ago. Objective Vital Signs Date Time Temp Pulse Resp B/P (MAP) Pulse Ox O2 Delivery O2 Flow Rate FiO2 02/07/18 16:00 98.6 66 18 128/71 (90) 97 02/07/18 12:00 98.0 69 18 126/79 (95) 97 02/07/18 08:04 97.9 63 16 134/62 (86) 99 02/07/18 04:45 97.0 66 17 125/65 (85) 97 02/07/18 00:30 98.0 70 18 129/69 (89) 99 I/O 02/06/18 02/06/18 02/06/18 02/07/18 02/07/18 02/07/18 07:00 15:00 23:00 07:00 15:00 23:00 Intake Total 1400 ml 2200 ml Balance 1400 ml 2200 ml Intake Oral 400 ml 1200 ml IV Total 1000 ml 1000 ml # Voids 1 4 # Bowel Movements 0 0 Result Diagram: 02/07/18 0658 02/07/18 0658 Objective Remarks GENERAL: NAD, A&Ox3 HEAD: Normocephalic. NECK: Supple, trachea midline. No lymphadenopathy. EYES: No scleral icterus. No injection or drainage. CARDIOVASCULAR: Regular rate and rhythm without murmurs, gallops, or rubs. RESPIRATORY: Breath sounds equal bilaterally. No accessory muscle use. GASTROINTESTINAL: Abdomen soft, non-tender, nondistended. MUSCULOSKELETAL: No cyanosis, or edema. SKIN: Warm and dry. NEURO: No focal neurological deficitis. A/P Problem List: (1) Seizure disorder ICD Code: G40.909 - Epilepsy, unspecified, not intractable, without status epilepticus Status: Acute (2) Seizure ICD Code: R56.9 - Unspecified convulsions Status: Acute Assessment and Plan 57-year-old female admitted for breakthrough seizure and elevated Depakote level Seizure disorder Acute breakthrough seizure Elevated Depakote level Keppra started Continue to monitor for any further seizure activity Depakote on hold Depakote resumed at lower level DVT prophylaxis SCDs Cassius Bruner MD February 07, 2018 18:11
--- NOTE | 2018-02-07 18:19 | MG ---
cc: Eamon Garcia MD EEG NUMBER: [id number] A 57-year-old, unwitnessed seizure, woke up lying on a bench, epilepsy since age 6. Keppra, Tegretol. There begins, right at the first page, what looks like some spike wave or polyspike wave activity bilaterally. A background of diffuse beta and alpha rhythms is seen, which is synchronous and symmetric and normal appearing, and at epoch 17 polyspike wave is seen bifrontally for approximately 3 seconds, and several other episodes of this are seen throughout the recording, although really for the most part, the last half of the recording did not have any of those abnormalities. Photic stimulation was performed without significant posterior driving. Hyperventilation was performed, which did bring out some of the spike waves. IMPRESSION: This is consistent with a primary generalized seizure disorder. The Tegretol in some patients can actually make that a bit worse, so consideration for changing to a different medication should be entertained. Clinical correlation is needed. MD DAKOTA Jessica/VERONICA , 06:05 PM , 06:17 PM
[2018-02-08 00:10] VITALS: BP 146/72; PULSE 62; RESP 18; TEMP 98; O2SAT 99
[2018-02-08 05:40] VITALS: BP 140/80; PULSE 73; RESP 18; TEMP 97.3; O2SAT 98
[2018-02-08 07:40] VITALS: BP 162/80; PULSE 61; RESP 19; TEMP 99.3; O2SAT 98
[2018-02-08] MEDS: levETIRAcetam 500 MG TAB PO SCH (07:45)
[2018-02-08] MEDS: DOCUSATE SODIUM 50 MG/SENNA 8.6 MG TAB PO SCH (07:46)
[2018-02-08] MEDS: SODIUM CHLORIDE 0.9% FLUSH 10 ML FLUSH IV FLUSH SCH (07:46)
[2018-02-08] MEDS ORDERED: LEVE500 PO (10:00)
[2018-02-08] MEDS ORDERED: DEPA500T3 PO (10:00)
--- NOTE | 2018-02-08 12:51 | HHI.DS ---
Discharge Summary Admission Date Feb 06, 2018 at 14:10 Discharge Date: February 08, 2018 Admitting Diagnosis Seizure, elevated Depakote (1) Seizure ICD Code: R56.9 - Unspecified convulsions Status: Acute (2) Seizure disorder ICD Code: G40.909 - Epilepsy, unspecified, not intractable, without status epilepticus Status: Acute Procedures None Brief History - From Admission The patient is a 57-year-old female with a past medical history of epilepsy on Depakote who is presenting to the hospital with concerns of a new seizure. Patient says she walked to her christianity and sat on the bench there. She says eventually she came to, was dizzy and found that her drink was upside down. She said she was also slumped on the bench. She was also forgetful and confused and she says those are symptoms she normally has following a seizure. She has had a lady walked by the bandage and asked her how she was and the patient was unable to communicate secondary to her state. She said she continued to feel foggy and got scared and decided to come to the hospital. The patient says she last had an episode about a year ago. She says her last real grand mal seizure was about 6 years ago. She says she has been on Depakote for 20 years and her dose has not been changed. She says she has been forgetting to take a dose on some evenings. The patient says her neurologist is Dr. Newman. She has been having some insurance problems with follow-up. The patient states she has been having some changes in her stool pattern. She endorses constipation. She says she came to the hospital not too long ago for concerns of a parasitic infection. She says she was not actually diagnosed with a parasitic infection. She says she has not had a colonoscopy. CBC/BMP: 02/07/18 0658 02/07/18 0658 Significant Findings Laboratory Tests Test 02/06/18 11:45 02/06/18 15:30 02/06/18 21:36 02/07/18 06:58 Monocytes (%) (Auto) 9.7 % (0.0-8.0) 9.8 % (0.0-8.0) Estimat Glomerular Filtration Rate 79 ML/MIN (>89) Valproic Acid (Depakene) Level 110 MCG/ML (50-100) Red Blood Count 3.73 MIL/MM3 (4.00-5.30) Total Protein 5.9 GM/DL (6.4-8.2) Albumin 2.9 GM/DL (3.4-5.0) Aspartate Amino Transf (AST/SGOT) 7 U/L (15-37) Hospital Course Mrs. Holcomb is a 57-year-old female. She was admitted for breakthrough seizures. Her last seizure was 6 years ago. She was found to have an elevated Depakote level. Depakote treatment has been decreased from 2000 mg daily to 1000 mg daily. She is also started on Keppra. No seizure activity last 48 hours. Patient medically stable for discharge home today. Pt Condition on Discharge: Stable Discharge Disposition: Discharge Home Discharge Time: <= 30 minutes Discharge Instructions DIET: Follow Instructions for: As Tolerated, No Restrictions Activities you can perform: Regular-No Restrictions Follow up Referrals: PCP Follow-up - 2 Weeks PCP Follow-up New Medications: Divalproex ER (Depakote ER) 500 Mg Stephania 1000 MG PO DAILY for Control Seizures, #30 TAB 0 Refills Levetiracetam (Keppra) 500 Mg Tab 500 MG PO Q12HR for Seizure Control, #60 TAB Discontinued Medications: Divalproex ER (Depakote ER) 500 Mg Stephania 2000 MG PO DAILY for Control Seizures, #120 TAB 2 Refills Cassius Bruner MD February 08, 2018 12:51
== END 2018-02-08 13:12 | disposition home or self-care (01) ==
LOC: NEPD 11:07 → NEDA 14:10 → N05A 17:44
PROVIDERS: ADMIT Hospitalist; ATTEND Hospitalist
DX: G40.409 Other generalized epilepsy and epileptic syndromes, not intractable, without status epilepticus (principal); K59.00 Constipation, unspecified; R51 Headache; M54.2 Cervicalgia; I10 Essential (primary) hypertension; F41.9 Anxiety disorder, unspecified; F32.9 Major depressive disorder, single episode, unspecified; F40.240 Claustrophobia; F17.200 Nicotine dependence, unspecified, uncomplicated; Z23 Encounter for immunization
CPT/HCPCS: 70450; 70551; 72125; 80048; 80053; 80164; 81001; 82550; 82607; 82948; 84443; 85025; 90471; 90686; 95819; 96361; 96374; 99285; G0378; J2060; J7030; G0008; Q2038